=== PATIENT | female | born 1985 | race Two or more races ===

== ENCOUNTER 2022-07-13 09:40 | Inpatient (IN) | payer OTHER ==
[~2022-07-13] VITALS: Ht 167.6 cm; Wt 81.6 kg
[2022-07-13] MEDS ORDERED: CARBOPROST TROMETHAMINE 250 MCG/ML AMPUL IM PRN (10:15)
[2022-07-13] MEDS ORDERED: LACTATED RINGERS 1,000 ML IV SCH (10:15)
[2022-07-13] MEDS ORDERED: METHYLERGONOVINE MALEATE 0.2 MG/ML IM PRN (10:15)
[2022-07-13] MEDS ORDERED: MISOPROSTOL 200MCG TABLET VG SCH (10:15)
[2022-07-13] MEDS: LIDOCAINE HCL 1% 20ML VIAL (Pyxis) INJ INFIL SCH ×2 (10:32→10:45)
[2022-07-13] MEDS: OXYTOCIN 30 UNITS/500ML NS PMX 500 ML IV SCH ×2 (10:33→13:35)
[2022-07-13 11:09] LABS: HEMATOCRIT. 37.9 % (36.0-48.0); MEAN CORPUSCULAR HEMOGLOBIN 32.2 pg (28.0-32.0); MEAN CORPUSCULAR VOLUME 93.8 fL (81.0-99.0); MEAN PLATELET VOLUME 9.1 fl (7.4-10.4); PLATELET 276 x1000/uL (130-400); RED BLOOD CELL COUNT 4.05 mill/uL (4.2-5.4); RED CELL DISTRIBUTION WIDTH 12.8 % (11.6-14.6)
[2022-07-13 11:11] LABS: CLARITY URINE CLEAR (CLEAR); COLOR URINE YELLOW (YELLOW); KETONES URINE NEGATIVE (NEGATIVE); LEUKOCYTE ESTERASE URINE NEGATIVE (NEGATIVE); NITRITE URINE NEGATIVE (NEGATIVE); OCCULT BLOOD URINE 1+ (NEGATIVE); PROTEIN URINE NEGATIVE (NEGATIVE); SPECIFIC GRAVITY URINE 1.014 (1.005-1.030); UROBILINOGEN URINE 0.2 E.U./dL (0.2-1.0)
[2022-07-13] MEDS ORDERED: DIPHENHYDRAMINE 25MG CAPSULE PO PRN (11:15)
[2022-07-13] MEDS ORDERED: RHO(D) IMMUNE GLOBULIN 300 MCG/SYR IM PRN (11:15)
[2022-07-13] MEDS ORDERED: IBUPROFEN 400MG TABLET PO PRN (11:15)
[2022-07-13 11:21] LABS: INR 0.9; PARTIAL THROMBOPLASTIN TIME 24.5 sec (23.4-31.0); PROTHROMBIN TIME 9.5 sec (9.6-11.0)
[2022-07-13 11:25] LABS: *AMPHETAMINES SCREEN URINE NEGATIVE (NEGATIVE); *BARBITURATES SCREEN URINE NEGATIVE (NEGATIVE); *BENZODIAZEPINES SCREEN URINE NEGATIVE (NEGATIVE); *COCAINE SCREEN URINE NEGATIVE (NEGATIVE); CANNABINOID URINE SCREEN NEGATIVE (NEGATIVE); METHADONE URINE SCREEN NEGATIVE (NEGATIVE); OPIATES URINE SCREEN NEGATIVE (NEGATIVE); PHENCYCLIDINE URINE SCREEN NEGATIVE (NEGATIVE)
[2022-07-13 11:34] LABS: PLATELET ESTIMATE NORMAL
[2022-07-13 12:00] VITALS: BP 100/60
[2022-07-13 13:36] LABS: HEPATITIS B SURFACE ANTIGEN NEGATIVE
[2022-07-13] MEDS: IBUPROFEN 800MG TABLET PO PRN ×2 (17:03→23:00)
[2022-07-13 20:00] VITALS: BP 106/80
[2022-07-14 04:00] VITALS: BP 105/78
[2022-07-14] MEDS: IBUPROFEN 800MG TABLET PO PRN ×2 (04:21→12:15)
[2022-07-14 07:29] LABS: BASOPHILS % 0.5 % (0.0-2.0); EOSINOPHILS % 1.1 % (0.0-5.0); HEMATOCRIT. 33.1 % (36.0-48.0); HEMOGLOBIN. 11.4 g/dL (12.0-16.0); MEAN CORPUSCULAR HEMOGLOBIN 32.4 pg (28.0-32.0); MEAN CORPUSCULAR VOLUME 94.4 fL (81.0-99.0); MEAN PLATELET VOLUME 9.4 fl (7.4-10.4); MONOCYTES % 6.2 % (2.0-8.0); NEUTROPHILS % 72.2 % (40.0-76.0); PLATELET 239 x1000/uL (130-400); RED BLOOD CELL COUNT 3.51 mill/uL (4.2-5.4); RED CELL DISTRIBUTION WIDTH 13.1 % (11.6-14.6)
[2022-07-14] MEDS ORDERED: FERROUS SULFATE 325MG TABLET PO SCH (07:30)
[2022-07-14 08:00] VITALS: BP 100/68
[2022-07-14] MEDS ORDERED: PRENATAL VIT/FE FUMARATE/FA TABLET PO SCH (09:00)
[2022-07-14] MEDS ORDERED: BENZOCAINE/LANOLIN/ALOE VERA SPRAY TOP PRN (12:00)
[2022-07-14] MEDS ORDERED: LANOLIN OINT 7GM TUBE TOP PRN (12:15)
== END 2022-07-14 16:15 | disposition home or self-care (01) | DRG 769 ==
LOC: 8 EST LDRP 09:40 → 8EST 11:10
PROVIDERS: ADMIT Obstetrics & Gynecology; ATTEND Obstetrics & Gynecology
PROC: 0KQM0ZZ Repair Perineum Muscle, Open Approach (ICD-10-PCS; principal; 2022-07-13)
DX: O70.1 Second degree perineal laceration during delivery (principal)
CPT/HCPCS: 36415; 80305; 81003; 85025; 86592; 86703; 86762; 86850; 86900; 87340; J3490; J2590